=== PATIENT | male | born 1955 | race Caucasian/White ===

== ENCOUNTER 2020-11-27 14:20 | Emergency (ER) | payer MEDICARE, OTHER ==
[2020-12-07] MEDS ORDERED: LOVAZA1 GM PO (07:28)
[2020-12-07] MEDS ORDERED: TUMERIC PO (07:30)
[2020-12-07] MEDS ORDERED: CALCIUM PO (07:31)
[2020-12-07] MEDS ORDERED: FOLIC ACID PO (07:32)
[2020-12-07] MEDS ORDERED: CHROMIUM PIC PO (07:33)
[2020-12-07] MEDS ORDERED: PERCOCET 5-3251 EACH PO (11:38)
== END 2020-11-27 16:10 | disposition home or self-care (01) ==
LOC: FER 14:20
DX: S52.572A Other intraarticular fracture of lower end of left radius, initial encounter for closed fracture (principal); S52.612A Displaced fracture of left ulna styloid process, initial encounter for closed fracture; W19.XXXA Unspecified fall, initial encounter; Y93.73 Activity, racquet and hand sports; Y92.830 Public park as the place of occurrence of the external cause
CPT/HCPCS: 73090; 73110

== ENCOUNTER → 2020-12-07 | Day surgery (SDC) | payer MEDICARE, OTHER ==
[~2020-12-07] MED LIST: CALCIUM PO; CHROMIUM PIC PO; FOLIC ACID PO; LOVAZA1 GM PO; PERCOCET 5-3251 EACH PO; TUMERIC PO
[2020-12-07 07:48] LABS: HCT 49.7 % (42.0-52.0); HGB 16.2 g/dl (13.2-18.0); MCH 28.4 pg (25.0-31.0); MCHC 32.6 g/dL (32.0-36.0); MPV 10.2 fL (6.0-9.5); RBC 5.71 M/uL (4.70-6.00); RDW 12.5 % (11.5-14.0); WBC 7.9 K/uL (4.0-10.5)
--- NOTE | 2020-12-07 13:40 | NUR ---
IN PREOP RN HAD ANESTHESIA REVIEW RHYTHM STRIP WHEN PLACED ON A MONITOR. , OBTAINED EKG AND GIVEN TO ANESTHESIA. NO FURTHER ORDERS. DISCUSSED WITH ANESTHESIA POST OP FOR ANY RECOMENDATIONS FOR FOLLOW UP. ANESTHESIA AND RN DISCUSSED WITH PT AND ABOUT RECOMMENDING FOLLOW UP WITH A PRIMARY DR. AND TO FOLLOW UP WITH A OFFSET PRINTING OPERATOR.
== END | disposition home or self-care (01) ==
LOC: FAS 07:04
PROVIDERS: Legal Medicine
DX: S52.572A Other intraarticular fracture of lower end of left radius, initial encounter for closed fracture (principal); Z20.822 Contact with and (suspected) exposure to COVID-19; W18.30XA Fall on same level, unspecified, initial encounter; Y93.59 Activity, other involving other sports and athletics played individually; Y92.312 Tennis court as the place of occurrence of the external cause
CPT/HCPCS: 36415; 73100; 76000; 93005; C1713; J0690; J1100; J1885; J2250; J2405; J2704; J2795; J3010; J7120

== ENCOUNTER 2020-12-13 18:23 | Emergency (ER) | payer MEDICARE, OTHER ==
[2020-12-13 19:59] LABS: BASOPHIL 0.1 % (0-2); EOSINOPHIL 0 % (0-7); HCT 48.8 % (42.0-52.0); HGB 16.3 g/dl (13.2-18.0); LYMPHOCYTE 3.3 % (15-48); MCH 28.2 pg (25.0-31.0); MCHC 33.4 g/dL (32.0-36.0); MCV 84.3 fL (78.0-100.0); MONOCYTE 4.8 % (0-12); MPV 9.8 fL (6.0-9.5); NEUTROPHIL 91.4 % (41-80); NRBC 0; PLT 359 K/uL (150-400); RBC 5.79 M/uL (4.70-6.00); RDW 12.2 % (11.5-14.0); WBC 15.1 K/uL (4.0-10.5)
[2020-12-13 20:13] LABS: ALBUMIN 3.7 g/dL (3.4-5.0); BILIRUBIN - TOTAL 1.6 mg/dL (0.2-1.0); BUN/CREAT RATIO (CALC) 24.1 RATIO; CREATININE 0.87 mg/dL (0.67-1.17); GLOBULIN (CALCULATION) 4.1 g/dL; POTASSIUM 3.4 mmol/L (3.5-5.1); TOTAL PROTEIN 7.8 g/dL (6.4-8.2)
== END 2020-12-13 23:14 | disposition left against medical advice (07) ==
LOC: FER 18:23
PROVIDERS: Emergency Medicine
DX: Z53.8 Procedure and treatment not carried out for other reasons (principal)
CPT/HCPCS: 36415; 80053; 83690; 85025; J2405; J7030

== ENCOUNTER 2020-12-15 13:16 | Inpatient (IN) | payer MEDICARE, OTHER ==
[2020-12-15 16:27] LABS: BASOPHIL 0.2 % (0-2); EOSINOPHIL 0 % (0-7); HCT 45.2 % (42.0-52.0); HGB 15.3 g/dl (13.2-18.0); MCH 28.2 pg (25.0-31.0); MCHC 33.8 g/dL (32.0-36.0); MCV 83.4 fL (78.0-100.0); MONOCYTE 10.8 % (0-12); MPV 9.9 fL (6.0-9.5); NEUTROPHIL 81.8 % (41-80); NRBC 0; PLT 329 K/uL (150-400); RBC 5.42 M/uL (4.70-6.00); RDW 12.3 % (11.5-14.0); WBC 9.5 K/uL (4.0-10.5)
[2020-12-15 16:31] LABS: INR 1.2 (0.9-1.2); PROTHROMBIN TIME 14.4 SECONDS (11.4-13.6); PTT 26.8 SECONDS (22.2-34.7)
[2020-12-15 16:48] LABS: ALBUMIN 3.2 g/dL (3.4-5.0); BILIRUBIN - TOTAL 1.9 mg/dL (0.2-1.0); BUN/CREAT RATIO (CALC) 27.2 RATIO; CREATININE 0.81 mg/dL (0.67-1.17); GLOBULIN (CALCULATION) 3.8 g/dL; POTASSIUM 3.7 mmol/L (3.5-5.1)
[2020-12-16 04:49] LABS: BILIRUBIN NEGATIVE (NEGATIVE); BLOOD NEGATIVE Ery/uL (NEGATIVE); CLARITY CLEAR (CLEAR); COLOR YELLOW (YELLOW); GLUCOSE (U) NORMAL (NORMAL); LEUKOCYTES NEGATIVE Leu/uL (NEGATIVE); NITRITE NEGATIVE (NEGATIVE); PROTEIN NEGATIVE (NEGATIVE); UROBILINOGEN 0.2 mg/dL (0.2-1.0); pH 6.5 (5.0-9.0)
[2020-12-16 04:55] LABS: BACTERIA TRACE; STARCH GRANULES PRESENT
[2020-12-16 07:31] LABS: BASOPHIL 0.2 % (0-2); EOSINOPHIL 0.1 % (0-7); HCT 45.8 % (42.0-52.0); HGB 15.2 g/dl (13.2-18.0); LYMPHOCYTE 8.7 % (15-48); MCH 28.4 pg (25.0-31.0); MCHC 33.2 g/dL (32.0-36.0); MCV 85.6 fL (78.0-100.0); MPV 10.3 fL (6.0-9.5); NEUTROPHIL 78.8 % (41-80); NRBC 0; PLT 268 K/uL (150-400); RBC 5.35 M/uL (4.70-6.00); RDW 12.5 % (11.5-14.0); WBC 8.4 K/uL (4.0-10.5)
[2020-12-16 07:56] LABS: ALBUMIN 2.9 g/dL (3.4-5.0); BILIRUBIN - TOTAL 1.9 mg/dL (0.2-1.0); BUN/CREAT RATIO (CALC) 26.9 RATIO; CREATININE 0.78 mg/dL (0.67-1.17); GLOBULIN (CALCULATION) 3.4 g/dL; POTASSIUM 3.5 mmol/L (3.5-5.1); TOTAL PROTEIN 6.3 g/dL (6.4-8.2)
[2020-12-16 08:05] LABS: BAND 1 % (0-10); LYMPHOCYTE(M) 10 % (15-48); MONOCYTE(M) 10 % (0-12); NEUTROPHILS(M) 79 % (41-80); PLATELET ESTIMATE NORMAL; PLATELET MORPHOLOGY NORMAL; TOTAL CELL COUNT 100
--- NOTE | 2020-12-16 19:28 | NUR ---
report given to osvaldo benjamin at [facility], [facility] called report given to alize benjamin here at [facility], family updated on plan of care
== END 2020-12-16 20:30 | disposition other institution (70) | DRG 376 ==
LOC: FER 13:16 → FMS 18:26
PROVIDERS: Emergency Medicine; Nurse Practitioner; Surgery; ADMIT Internal Medicine
PROC: 0DBP8ZX Excision of Rectum, Via Natural or Artificial Opening Endoscopic, Diagnostic (ICD-10-PCS; principal; 2020-12-16 11:05)
DX: C20 Malignant neoplasm of rectum (principal); F32.9 Major depressive disorder, single episode, unspecified; F41.9 Anxiety disorder, unspecified; Z20.822 Contact with and (suspected) exposure to COVID-19; Z98.890 Other specified postprocedural states
CPT/HCPCS: 36415; 74018; 80053; 81001; 82378; 83605; 83690; 83735; 84145; 84443; 84484; 85025; 85610; 85730; 88305; 93005; C9113; J1170; J2250; J2405; J2704; J3480; J7030; J7120; Q9967; U0002